=== PATIENT | male | born 1960 | race African-American/Black ===

== ENCOUNTER → 2017-03-11 | Outpatient (CLI) | payer BC, OTHER ==
[~2017-03-11] MED LIST: AMLO5TAB2 PO; ASPI1TAB PO; ATEN25TA PO; ATOR80TA59 PO; FISH500C PO; HYDR25TAB PO; MULT1TAB10 PO; PANT40TA2 PO; POTA10TA16 PO; antibiotic PO
[2017-03-11 10:29] LABS: BASO # 0.1 10^3/uL (0.0-0.2); EOS # 0.3 10^3/uL (0.0-0.50); EOS % 4.5 % (0.0-3.0); IMMATURE GRANULOCYTE % 0.7 % (0-0); LYMPH # 1.7 10^3/uL (1.5-4.5); LYMPH % 27.8 % (24.0-44.0); MEAN CORPUSCULAR HEMOGLOBIN 30.2 pg (27.0-33.0); MEAN CORPUSCULAR HGB CONC 33.8 g/dl (32.0-36.5); MEAN CORPUSCULAR VOLUME 89.4 fl (80.0-96.0); MONO # 0.5 10^3/uL (0.0-0.8); MONO % 7.4 % (0.0-5.0); NEUTROPHILS # 3.6 10^3/uL (1.8-7.7); NEUTROPHILS % 58.6 % (36.0-66.0); PLATELET COUNT, AUTOMATED 253 10^3/uL (150-450); RED CELL DISTRIBUTION WIDTH 13.4 % (11.5-14.5); WHITE BLOOD COUNT 6.1 10^3/uL (4.0-10.0)
[2017-03-11 10:55] LABS: ANION GAP 5 MEQ/L (8-16); BLOOD UREA NITROGEN 16 MG/DL (7-18); CALCIUM LEVEL 9.2 MG/DL (8.5-10.1); CARBON DIOXIDE LEVEL 33 MEQ/L (21-32); CHLORIDE LEVEL 106 MEQ/L (98-107); CREATININE FOR GFR 0.93 MG/DL (0.70-1.30); GLOMERULAR FILTRATION RATE > 60.0 (>56); GLUCOSE, FASTING 110 MG/DL (70-105); POTASSIUM SERUM 4.1 MEQ/L (3.5-5.1); SODIUM LEVEL 144 MEQ/L (136-145)
--- NOTE | 2017-03-11 13:19 | ECGEPIP ---
Stationary ECG Study [facility] Test Date: 2017-03-11 Pat Name: MICHAEL HAWLEY Department: Room: - Gender: M Manager Visual: LELO : 1960 Requested By: Oswald Rosas Order Number: [id number] Reading MD: Lucretia Caicedo Measurements Intervals [place] Rate: 61 P: 29 [place]: 233 QRS: -25 QRSD: 115 T: 19 QT: 410 QTc: 416 Interpretive Statements SINUS RHYTHM WITH FIRST DEGREE AV BLOCK LEFT AXIS DEVIATION EARLY REPOLAR CHANGES MINIMAL VOLTAGE CRITERIA FOR LVH, CONSIDER NORMAL VARIANT NONSPECIFIC ST & T-WAVE ABNORMALITY NO PRIOR Electronically Signed On 03-11-2017 13:18:44 EST by Lucretia Caicedo
== END ==
LOC: M LAB 09:22
PROVIDERS: ATTEND Podiatrist
DX: Z01.818 Encounter for other preprocedural examination (principal)

== ENCOUNTER 2017-03-16 09:04 | Day surgery (SDC) | payer BC, OTHER ==
[~2017-03-16] VITALS: Ht 170.2 cm; Wt 101.2 kg
[2017-03-16] MEDS ORDERED: LR 1,000 ML IV ONE (09:15)
[2017-03-16] MEDS ORDERED: LIDOCAINE 2% INJ 100 MG/5 ML SDV (FOR ANES.) As Ordered ONE (10:20)
[2017-03-16] MEDS ORDERED: MIDAZOLAM INJ 2 MG/2 ML VIAL (J2250) As Ordered ONE (10:20)
[2017-03-16] MEDS ORDERED: ONDANSETRON 4MG/2ML VIAL (J2405) As Ordered ONE (10:20)
[2017-03-16] MEDS ORDERED: fentaNYL 100 MCG/2 ML INJECTION (J3010) As Ordered ONE (10:20)
[2017-03-16] MEDS ORDERED: PROPOFOL 200 MG/20 ML VIAL As Ordered ONE (10:20)
[2017-03-16] MEDS ORDERED: dexameTHASONE 4 MG/ML 1ML VIAL (J1100) As Ordered ONE (10:42)
[2017-03-16] MEDS ORDERED: LIDOCAINE 2% MDV 20 ML VIAL As Ordered ONE (10:42)
[2017-03-16] MEDS ORDERED: BUPIVACAINE HCL 0.5% 30 ML VIAL As Ordered ONE (10:42)
[2017-03-16] MEDS ORDERED: BACITRACIN PWD 50,000 UNITS VIAL As Ordered ONE (10:43)
[2017-03-16] MEDS ORDERED: NEOSPORIN GU IRRIG 20 ML VIAL As Ordered ONE (10:43)
[2017-03-16 13:30] VITALS: BP 140/83
--- NOTE | 2017-03-17 07:13 | RO ---
DATE OF PROCEDURE: 03/16/2017 PREPROCEDURE DIAGNOSIS: Plantar fasciitis left foot. POSTPROCEDURE DIAGNOSIS: Plantar fasciitis left foot. PROCEDURE: Endoscopic plantar fasciotomy left foot. SURGEON: Oswald Rosas DPM SUGAR CONTROLLER: ANESTHESIA: Local, monitored anesthesia care (MAC). HEMOSTASIS: Ankle pneumatic tourniquet at 225 mmHg for 10 minutes. HARDWARE UTILIZED: None. DESCRIPTION OF PROCEDURE: On 03/16/2017, this 56-year-old black male was taken from his hospital room to the operating room and placed on the operating room table in a supine position. Following the induction of IV sedation, local and regional anesthesia, the left lower extremity was prepped and draped in the usual aseptic manner. Attention was directed to the patient's left foot. Sterile draping was completed and the following was performed. ENDOSCOPIC PLANTAR FASCIOTOMY LEFT FOOT: Attention was directed to the patient's left foot where a 7 mm incision was placed on the medial aspect of the foot just distal to the medial tuberosity of the heel along the medial aspect of the foot. Utilizing a tenotomy scissors, dissection was then carried down to the level of the plantar fascia. A tissue distender was then utilized across the plantar fascia. An Arthrex [place] endoscopic fasciotomy blade was then entered into the wound giving direct inspection of the plantar fascia and 3/4 of the medial aspect of the plantar fascia was then identified and transected under direct visualization and confirmed with intraoperative images through the endoscope. The endoscope was then removed. The wound was flushed with copious amounts of dilute bacitracin, neomycin and polymyxin B solution. Subcutaneous tissue was coapted and maintained with #4-0 Vicryl in a simple interrupted type fashion. The skin incision was coapted and maintained utilizing #4-0 Prolene in a horizontal mattress type fashion. Following the completion of the surgical procedure, 4 mg of dexamethasone sodium phosphate was instilled proximal to the surgical site. Attention was directed towards bandaging where a sterile compressive bandage was applied consisting of Adaptic, 4x4s, 4x4 splints, Kerlix and Coban. The ankle pneumatic tourniquet was deflated and instantaneous capillary filling time was noted in digits 1-5 of the patients left foot. The patient having apparently tolerated the surgical procedure well was taken from the operating room (OR) to the recovery room with vital signs stable and the patient afebrile for further monitoring by the anesthesia department. Postoperative instructions will be given upon discharge.
== END 2017-03-16 13:30 | disposition home or self-care (01) ==
LOC: M SDC 09:04
PROVIDERS: ATTEND Podiatrist
DX: M72.2 Plantar fascial fibromatosis (principal); I10 Essential (primary) hypertension; E78.00 Pure hypercholesterolemia, unspecified; K21.9 Gastro-esophageal reflux disease without esophagitis; R06.02 Shortness of breath; M12.9 Arthropathy, unspecified; R51 Headache; R06.83 Snoring; G47.33 Obstructive sleep apnea (adult) (pediatric); Z79.899 Other long term (current) drug therapy; Z87.891 Personal history of nicotine dependence
CPT/HCPCS: 29893; 97116; J1100; J2250; J2405; J3010

== ENCOUNTER → 2019-06-28 | Outpatient (CLI) | payer BC, OTHER ==
[~2019-06-28] MED LIST changes: -AMLO5TAB2 PO; +AMLO5TAB6 PO; -ASPI1TAB PO; +ASPI81TA26 PO; +E-Z-GAS II EFFERVESCENT PACKET (SODIUM BICARB./CITRIC ACID/SIMETHICONE) As Ordered ONE; +E-Z-HD 98% w/w 340GM SUSP BTL As Ordered ONE; +E-Z-PAQUE 96% w/w SUSP 176GM BTL As Ordered ONE; -PANT40TA2 PO; +PANT40TA3 PO
--- NOTE | 2019-06-28 17:44 | REP ---
Esophagram The procedure was performed under the direct supervision of Dr. Hdez. The images were reviewed with Dr. Hdez. A single view PA chest x-ray is submitted as a electrical engineering professor film. The superior mediastinal structures are midline. The heart size is within normal limits. The lungs are clear. Liquid barium and gas producing granules were given in the erect position as well as liquid barium in the prone oblique positions in order to perform a double contrast esophagram examination. The oral and pharyngeal stages of deglutition are unremarkable. There are esophageal transport there are tertiary waves demonstrated. There is no esophagitis, stricture, mucosal ring or hiatal hernia. gastroesophageal reflux is not demonstrated on this examination. Impression: there are tertiary waves demonstrated. Otherwise, unremarkable double contrast esophagram examination. 0.6 minutes of fluoro time was utilized for this procedure. Electronically Signed by JUN Crisostomo 06/28/2019 03:56 P Electronically Signed by Andrew Hdez MD 06/28/2019 05:35 P
== END ==
LOC: M RAD 08:34
PROVIDERS: ATTEND Specialist
DX: R13.10 Dysphagia, unspecified (principal)

== ENCOUNTER → 2022-01-14 | Outpatient (CLI) | payer BC, OTHER ==
[~2022-01-14] MED LIST changes: +AMLO1TAB24 PO; -AMLO5TAB6 PO; -E-Z-GAS II EFFERVESCENT PACKET (SODIUM BICARB./CITRIC ACID/SIMETHICONE) As Ordered ONE; -E-Z-HD 98% w/w 340GM SUSP BTL As Ordered ONE; -E-Z-PAQUE 96% w/w SUSP 176GM BTL As Ordered ONE; +HYDR-3490 PO; -HYDR25TAB PO; +PANT40TA29 PO; -PANT40TA3 PO; +POTA-149 PO; -POTA10TA16 PO
== END ==
LOC: M RAD 11:19
PROVIDERS: ATTEND Orthopaedic Surgery
DX: Z18.10 Retained metal fragments, unspecified (principal)

== ENCOUNTER → 2022-03-09 | Outpatient (CLI) | payer OTHER | LOC: M PLAIMG 12:51 | PROVIDERS: ATTEND Family Medicine | DX: M54.2 Cervicalgia (principal); M47.812 Spondylosis without myelopathy or radiculopathy, cervical region ==

== ENCOUNTER → 2022-05-04 | Outpatient (CLI) | payer OTHER | LOC: M PLAIMG 14:20 | PROVIDERS: ATTEND Nurse Practitioner Family | DX: M54.6 Pain in thoracic spine (principal); M54.50 Low back pain, unspecified ==

== ENCOUNTER → 2022-06-16 | Outpatient (REF) | payer OTHER ==
[2022-06-16 15:22] LABS: GC DNA AMPLIFICATION NEGATIVE (NEGATIVE)
== END ==
LOC: M SMT 13:08
PROVIDERS: ATTEND Specialist
DX: E29.1 Testicular hypofunction (principal); N41.0 Acute prostatitis; B00.9 Herpesviral infection, unspecified

== ENCOUNTER → 2022-08-31 | Outpatient (CLI) | payer BC, OTHER | LOC: M PAIN 08:00 | PROVIDERS: ATTEND Nurse Practitioner Family | DX: M79.10 Myalgia, unspecified site (principal); G89.29 Other chronic pain; E11.9 Type 2 diabetes mellitus without complications; I10 Essential (primary) hypertension; K21.9 Gastro-esophageal reflux disease without esophagitis; Z87.891 Personal history of nicotine dependence; Z79.84 Long term (current) use of oral hypoglycemic drugs; Z79.899 Other long term (current) drug therapy ==

== ENCOUNTER 2023-11-17 16:51 | Emergency (ER) | payer BC, OTHER ==
[~2023-11-17] VITALS: Ht 167.6 cm; Wt 97.9 kg
[2023-11-17 17:07] VITALS: TEMP 96.8
[2023-11-17] MEDS: diphenhydrAMINE 50MG/ML VIAL IV ONE (17:07)
[2023-11-17] MEDS ORDERED: PRED20TA PO (17:32)
[2023-11-17] MEDS ORDERED: CETI-25 PO (17:33)
[2023-11-17 18:30] VITALS: BP 108/57; O2SAT 94
[2023-11-17 18:36] LABS: C REACTIVE PROTEIN QUANTITATIV < 0.40 MG/DL (<1.0)
[2023-11-17 18:41] LABS: ALBUMIN 3.5 G/DL (3.2-5.2); ALKALINE PHOSPHATASE 56 U/L (46-116); ALT/SGPT 32 U/L (7.0-40); AST/SGOT 11 U/L (<34); BILIRUBIN,DIRECT < 0.1 MG/DL (<0.4); BILIRUBIN,TOTAL 0.2 MG/DL (0.3-1.2); BLOOD UREA NITROGEN 13 MG/DL (9-23); CARBON DIOXIDE LEVEL 28 MMOL/L (20-31); CHLORIDE LEVEL 104 MMOL/L (98-107); COMPLEMENT C4 19.9 MG/DL (12-36); CREATININE FOR GFR 0.99 MG/DL (0.70-1.30); GLOMERULAR FILTRATION RATE > 60.0 (>49); GLUCOSE, FASTING 181 MG/DL (74-106); POTASSIUM SERUM 3.6 MMOL/L (3.5-5.1); SODIUM LEVEL 138 MMOL/L (136-145); TOTAL PROTEIN 6.6 G/DL (5.7-8.2)
== END 2023-11-17 18:58 | disposition home or self-care (01) ==
LOC: M ED 16:51 → EDBD 16:51 → M ED 18:58
DX: T78.3XXA Angioneurotic edema, initial encounter (principal); I10 Essential (primary) hypertension; Z87.891 Personal history of nicotine dependence
CPT/HCPCS: 80048; 80076; 83519; 85280; 85652; 86140; 86160; 86161; 96374; 99284; J1200

== ENCOUNTER → 2024-01-31 | Outpatient (CLI) | payer BC, OTHER ==
[~2024-01-31] MED LIST changes: +CETI-25 PO; +PRED20TA PO
== END ==
LOC: M PLAIMG 14:28
PROVIDERS: ATTEND Registered Nurse
DX: I08.3 Combined rheumatic disorders of mitral, aortic and tricuspid valves (principal); I11.9 Hypertensive heart disease without heart failure; I27.20 Pulmonary hypertension, unspecified

== ENCOUNTER → 2024-11-29 | Outpatient (CLI) | payer MEDICARE, BC ==
[~2024-11-29] MED LIST changes: +METHACHOLINE KIT (6 VIAL.NEB PREMIX) INH ONE
== END ==
LOC: M RAD 11:15
PROVIDERS: ATTEND Physician Assistant
DX: R06.02 Shortness of breath (principal); Z87.891 Personal history of nicotine dependence
CPT/HCPCS: 71250; 94070; 95070; J7674

== ENCOUNTER → 2025-03-18 | Outpatient (CLI) | payer BC, MEDICARE, OTHER ==
[~2025-03-18] MED LIST changes: -METHACHOLINE KIT (6 VIAL.NEB PREMIX) INH ONE
== END ==
LOC: M PLALAB 09:48
PROVIDERS: ATTEND Nurse Practitioner Family
DX: E29.1 Testicular hypofunction (principal); Z12.5 Encounter for screening for malignant neoplasm of prostate
CPT/HCPCS: 36415; G0103